=== PATIENT | female | born 1970 | race Caucasian/White ===

== ENCOUNTER → 2020-11-06 | Outpatient (CLI) | payer MEDICARE, OTHER | LOC: LAB 08:32 | PROVIDERS: Nurse Practitioner Primary Care | DX: N17.9 Acute kidney failure, unspecified (principal) | CPT/HCPCS: 36415; 80048; 80053 ==

== ENCOUNTER → 2020-11-08 | Outpatient (CLI) | payer MEDICARE, OTHER | LOC: LAB 12:02 | PROVIDERS: Nurse Practitioner Primary Care | DX: N17.9 Acute kidney failure, unspecified (principal) | CPT/HCPCS: 36415; 80048 ==

== ENCOUNTER → 2020-11-09 | Outpatient (CLI) | payer MEDICARE, OTHER | LOC: LAB 12:52 | PROVIDERS: Nurse Practitioner Primary Care | DX: N17.9 Acute kidney failure, unspecified (principal) | CPT/HCPCS: 36415; 80048 ==

== ENCOUNTER → 2020-12-22 | Outpatient (CLI) | payer MEDICARE, OTHER | LOC: RAD 13:35 | DX: M41.9 Scoliosis, unspecified (principal) | CPT/HCPCS: 72082 ==

== ENCOUNTER → 2021-09-23 | Outpatient (CLI) | payer MEDICARE, OTHER | LOC: OPSV 09-14 08:00 | DX: M81.0 Age-related osteoporosis without current pathological fracture (principal); F84.0 Autistic disorder; E55.9 Vitamin D deficiency, unspecified; K08.109 Complete loss of teeth, unspecified cause, unspecified class; N17.9 Acute kidney failure, unspecified; M40.209 Unspecified kyphosis, site unspecified | CPT/HCPCS: 96372; J3111 ==

== ENCOUNTER → 2021-10-24 | Outpatient (CLI) | payer MEDICARE, OTHER | LOC: OPSV 09:00 | DX: M81.0 Age-related osteoporosis without current pathological fracture (principal); M40.209 Unspecified kyphosis, site unspecified; F84.0 Autistic disorder; E55.9 Vitamin D deficiency, unspecified; K08.109 Complete loss of teeth, unspecified cause, unspecified class; F41.9 Anxiety disorder, unspecified; N17.9 Acute kidney failure, unspecified | CPT/HCPCS: 96372; J3111 ==

== ENCOUNTER → 2021-10-26 | Outpatient (CLI) | payer MEDICARE, OTHER ==
[2021-10-26 09:51] LABS: RED BLOOD COUNT 4.13 M/UL (4.00-5.10); WHITE BLOOD COUNT 6.6 K/UL (4.5-11.0)
[2021-10-26 10:16] LABS: BUN/CREATININE RATIO 11 (0-10)
== END ==
LOC: LAB 08:53
PROVIDERS: Nurse Practitioner Primary Care
DX: E55.9 Vitamin D deficiency, unspecified (principal); R53.83 Other fatigue; N17.9 Acute kidney failure, unspecified; E78.5 Hyperlipidemia, unspecified
CPT/HCPCS: 36415; 80053; 82340; 82570; 83735; 85025

== ENCOUNTER → 2021-11-24 | Outpatient (CLI) | payer MEDICARE, OTHER | LOC: OPSV 09:34 | DX: M81.0 Age-related osteoporosis without current pathological fracture (principal); M41.9 Scoliosis, unspecified; F84.0 Autistic disorder; K08.109 Complete loss of teeth, unspecified cause, unspecified class; N17.9 Acute kidney failure, unspecified | CPT/HCPCS: 96372; J3111 ==